=== PATIENT | female | born 1935 | race Caucasian/White ===

== ENCOUNTER 2017-04-20 14:08 | Emergency (ER) | payer OTHER ==
[~2017-04-20] VITALS: Ht 157.5 cm; Wt 63.6 kg
[2017-04-20 14:11] VITALS: Ht 157.5 cm; Wt 63.6 kg
--- NOTE | 2017-04-20 15:29 | RADRPT ---
PROCEDURE: CT Head without contrast. CLINICAL INDICATION: Fall, pain TECHNIQUE: Continuous axial CT images were obtained from the base of skull to the vertex. No cont rast was administered. The calculated radiation dose measures 630 mGy centimeters. The CTDI measures 45 mGy One or more of the following dose reduction techniques were used: Automated exposure control. Adjustment of the mA and/or kV according to patient size. Use of iterative reconstruction technique. COMPARISON: No prior studies are available for comparison. FINDINGS: There is mild diffuse cerebral volume loss. There is a 11 x 10 mm partially calcified dural-based st ructure arising from the left anterior falx cerebri. There is slight mass effect on the adjacent lef t frontal lobe. The ventricles are symmetric and normal in configuration. There is no midline shift. There is no abnormal intra-axial or extra-axial fluid collection. There is no evidence of intracranial hemorrh age. 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 There are scattered areas of decreased attenuation in the supratentorial white matter, consistent wi th mild small vessel ischemic changes. There is moderate atherosclerotic vascular calcification. The bony calvarium is intact. The orbital soft tissue contents are unremarkable. Paranasal sinuses appear clear. There is fluid in the right mastoid air cells. IMPRESSION: 1. Mild age related cerebral volume loss. Mild small vessel ischemic changes. 2. Moderate atherosclerotic vascular calcification. 3. 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 4. Right mastoid fluid. RPTAT: QQ .Boubacar Adames MD, Date Time Electronically viewed and signed by .Boubacar Adames MD, MD on 04/20/2017 15:28 .T/
--- NOTE | 2017-04-20 15:58 | RADRPT ---
PROCEDURE: CT Cervical Spine. CLINICAL INDICATION: Pain status post fall TECHNIQUE: A CT of the cervical spine was performed on a multidetector ShutterCal CT scanner utilizing hig h-resolution axial imaging from the skull base through the cervical thoracic junction. Sagittal, co sheri, and multiplanar reformatted images were made. CTDI 22.22 mGy and DLP 502.57 mGy-cm. One of the following 3 does reduction techniques were used during this CT examination: 1) Automated exposure control 2) Adjustment of the mA +/- kV according to patient size or 3) Use of iterative reconstruction technique COMPARISON: None available FINDINGS: There is straightening of the normal lordosis of the cervical spine. Generalized osteopenia is prese nt. Preservation of vertebral body heights are noted. Moderate disc space height loss is present at the C6-7 level. The posterior elements are intact and well aligned. The appearance of an enlarged le ft intervertebral foramen is noted at the C2 through C6 levels when compared with the right interver tebral foramen. The visualized imaged soft tissues are normal with vascular calcifications present o f the bilateral carotid bulbs and the vertebral basilar circulation. In addition, a calcified right thyroid lobe nodule measuring 7 mm in maximum dimensions is present. The lung apices are clear. The specific axial levels are as follows: Occiput to C2: The visualized posterior fossa, and left mastoid air cells and middle ear cavity are clear. Soft tissue attenuation is noted in the right middle ear cavity and mastoid and correlate wi th temporal bone CT as indicated clinically. The spinal canal is patent. C2-3: The intervertebral disc is normal. The central canal, subarticular recess and neural foramen are patent. C3-4: The intervertebral disc is normal. A mild 2 mm annular bulge is present. The central canal, s ubarticular recess and neural foramen are patent. C4-5: The intervertebral discs is normal. A mild annular bulge is present. The central canal, subar ticular recess and neural foramen are patent. C5-6: The intervertebral disc is normal. A mild annular bulge is present. The central canal, subart icular recess and neural foramen are patent. C6-7: Moderate disc space height loss is present with an mild osteophytic bar and annular bulge. Th e central canal, , subarticular recesses and neural foramen are patent. C7-T1: The intervertebral disc is normal. The central canal, subarticular recess, and neural forame n are patent. IMPRESSION: 1. No acute fractures or traumatic subluxations. 2. Straightening of the normal cervical lordosis with generalized osteopenia. 3. Moderate disc space height loss at C6-7 4. Multilevel mild annular bulges at the C3-4 through C6-7 levels with patent central canal. 5. 7 mm calcified right thyroid lobe nodule RPTAT: HDC .Beth Obrien MD, Date Time Electronically viewed and signed by .Beth Obrien MD, on 04/20/2017 15:57 .C/
[2017-04-20] MEDS ORDERED: IOHEXOL 350MG/ML 50 ML BTL ONE (16:13)
--- NOTE | 2017-04-20 17:03 | ERD ---
ER Documentation Chief Complaint Date/Time DATE: 04/20/17 TIME: 17:02 Chief Complaint CAME IN VIA EMS DUE TO MECHANICAL FALL HPI Patient is an 81-year-old female who presents after a fall. I spoke with the daughter told me that this was a mechanical fall. This is the third time she has fallen this year. She had her face and there is an abrasion of the face. The daughter also said that she cut her G-tube today and the G-tube needs to be replaced. There was no syncope. Upon review of old medical records this is the patient's first visit to the emergency department. Please note the history and physical exam is limited secondary to the patient's mild dementia. ROS All systems reviewed and are negative except as per history of present illness. PMhx/Soc Mild dementia History of Surgery: No Anesthesia Reaction: No Hx Respiratory Disorders: No Hx Cardiac Disorders: No Hx Psychiatric Problems: No Hx Miscellaneous Medical Probl: No Hx Alcohol Use: No Hx Substance Use: No Hx Tobacco Use: No Smoking Status: Never smoker FmHx Family History: No diabetes Physical Exam Vitals Vital Signs Date Time Temp Pulse Resp B/P Pulse Ox O2 Delivery O2 Flow Rate FiO2 04/20/17 14:11 97.9 67 18 140/75 99 Physical Exam Const: No acute distress Head: Atraumatic Eyes: Normal Conjunctiva ENT: Normal External Ears, Nose and Mouth. Neck: Full range of motion..~ No meningismus. Resp: Clear to auscultation bilaterally Cardio: Regular rate and rhythm, no murmurs Abd: Soft, non tender, non distended. Normal bowel sounds, there is a G-tube which has been cut in the left upper quadrant Skin: Abrasion of the left side of the face without laceration Back: No midline or flank tenderness Ext: No cyanosis, or edema Neur: Awake and alert Psych: Normal Mood and Affect Results 24 hrs Laboratory Tests Test 04/20/17 14:56 Bedside Glucose 84mg/dL Procedures/MDM EKG read by me: Rate/Rhythm: First-degree AV block at a normal rate Intervals: KS interval Impression: First degree AV block without ischemia CT brain negative for skull fracture or bleed per radiology. CT cervical spine negative for fracture per radiology. G-tube Insertion by me: Sterile technique, local prep and lubrication, time out performed. Location: Epigastrum Device: 20 Divehi G-tube Technique: Romana pressure with twisting motion. Balloon inflation Results: Gastric contents expressed. Compl: none X-ray Abdomen 1V Interpreted by me: Free Air: None Bowel Gas: Nonspecific Contrast: Intraluminal Patient is an 81-year-old female who presents with a mechanical fall. The patient had a CT scan of the brain and cervical spine which were negative for serious traumatic injury. I replaced the G-tube at the bedside without difficulty. The patient will be discharged home and can follow-up with the primary doctor within 24-48 hours. I believe the patient likely has abrasion and concussion. The patient can return for any worsening symptoms. Departure Diagnosis: Primary Impression: Gastrostomy tube dysfunction Additional Impressions: Concussion Encounter type: initial encounter Loss of consciousness presence/duration: without LOC Qualified Code: S06.0X0A - Concussion without loss of consciousness, initial encounter Abrasion Fall Encounter type: initial encounter Qualified Code: W19.XXXA - Fall, initial encounter Condition: Fair Patient Instructions: Concussion, Abrasion, Fall, Mechanical Referrals: Your doctor Additional Instructions: Call your primary care doctor TOMORROW for an appointment during the next 1-2 days.See the doctor sooner or return here if your condition worsens before your appointment time. ANGELES STOCKTON MD Apr 20, 2017 17:03
--- NOTE | 2017-04-20 18:05 | RADRPT ---
PROCEDURE: XR Abdomen. CLINICAL INDICATION: 81 years of age, female. Gastrostomy tube placement. TECHNIQUE: Supine AP view of the abdomen obtained following injection of Gastrografin through a ga strostomy tube COMPARISON: None available. FINDINGS: The tip of a gastrostomy tube projects over the left upper quadrant. Contrast is seen within the gas trostomy tubing and the stomach. No extraluminal contrast is visualized. Gas is seen within nondilated small and large bowel. There are no dilated loops of small bowel to s uggest a bowel obstruction. Bones are osteopenic. IMPRESSION: 1. Gastrostomy tube tip in the stomach without extraluminal leakage of contrast. 2. Nonobstructive bowel gas pattern. RPTAT: HCTS Physician Melina Date Time Electronically viewed and signed by Physician Melina on 04/20/2017 18:04 /
== END 2017-04-20 18:34 | disposition home or self-care (01) ==
LOC: E/R 14:08
DX: K94.23 Gastrostomy malfunction (principal); S06.0X0A Concussion without loss of consciousness, initial encounter; R00.2 Palpitations; R40.2142 Coma scale, eyes open, spontaneous, at arrival to emergency department; R40.2252 Coma scale, best verbal response, oriented, at arrival to emergency department; R40.2362 Coma scale, best motor response, obeys commands, at arrival to emergency department; W18.39XA Other fall on same level, initial encounter; Y92.9 Unspecified place or not applicable
CPT/HCPCS: 43760; 70450; 72125; 74000; 82962; 93005; Q9967; Z7502